=== PATIENT | male | born 1965 | race Caucasian/White ===

== ENCOUNTER 2023-08-03 19:55 | Emergency (ER) | payer MEDICAID, OTHER ==
[~2023-08-03] VITALS: Ht 177.8 cm; Wt 120.2 kg
[2023-08-03] MEDS ORDERED: BENA1TAB73 PO (20:20)
[2023-08-03] MEDS ORDERED: ATOR20TA PO (20:20)
[2023-08-03] MEDS ORDERED: METO-357 PO (20:20)
[2023-08-03] MEDS ORDERED: METF-495 PO (20:20)
[2023-08-03] MEDS ORDERED: ONDANSETRON 4 MG/2 ML VIAL ONE (20:33)
[2023-08-03] MEDS ORDERED: KETOROLAC TROMETHAMINE 15 MG INJ ONE (20:33)
[2023-08-03] MEDS: ONDANSETRON 4 MG/2 ML VIAL IV ONE (20:38)
[2023-08-03] MEDS: KETOROLAC TROMETHAMINE 15 MG INJ IVP ONE (20:38)
[2023-08-03] MEDS: IV NORMAL SALINE 500 ML BAG IV ONE (20:38)
[2023-08-03] MEDS ORDERED: IV NORMAL SALINE 250 ML IV ONE (20:40)
[2023-08-03] MEDS ORDERED: SWABABLE VALVE TRANSFER SET EA MC ONE (20:41)
[2023-08-03] MEDS ORDERED: IOHEXOL 300MG/ML 100 ML INFUS..BTL ONE (20:41)
[2023-08-03 20:44] LABS: BASOPHILS # (AUTO) 0.2 K/UL (0.0-0.2); BASOPHILS % (AUTO) 1.9 % (0.0-2.0); DIFFERENTIAL COMMENT 0; EOSINOPHILS # (AUTO) 0.2 K/uL (0.0-0.7); EOSINOPHILS % (AUTO) 2.3 % (0.0-7.0); HEMATOCRIT 40.4 % (36.7-47.1); HEMOGLOBIN 13.1 g/dL (12.5-16.3); LYMPHOCYTES % (AUTO) 20.2 % (20.5-51.5); MEAN CORPUSCULAR HGB CONC 32 g/dL (32.5-36.3); MEAN CORPUSCULAR VOLUME 61.9 fL (73.0-96.2); MONOCYTES # (AUTO) 0.7 K/uL (0.1-1.30); MONOCYTES % (AUTO) 6.8 % (0.0-11.0); NEUTROPHILS # (AUTO) 6.8 K/uL (1.8-8.9); NEUTROPHILS % (AUTO) 68.8 % (38.5-71.5); PLATELET COUNT (AUTO) 214 K/uL (152-348); RED CELL DISTRIBUTION WIDTH 17.4 % (12.1-16.2); WHITE BLOOD COUNT (AUTO) 9.9 K/uL (3.6-10.2)
[2023-08-03 20:51] LABS: RED BLOOD CELL COUNT(AUTO) 6.53 MIL/uL (4.06-5.63)
[2023-08-03 20:59] LABS: CALCIUM 8.7 mg/dL (8.5-10.1); CREATININE 0.9 mg/dL (0.6-1.3); POTASSIUM 3.5 mmol/L (3.5-5.1)
[2023-08-03 21:02] LABS: *BILIRUBIN,URIN NEGATIVE (NEGATIVE); *CLARITY,URINE CLEAR (CLEAR); *COLOR,URINE YELLOW (YELLOW); *KETONES,URINE NEGATIVE (NEGATIVE); *UROBILINOGEN,URINE 0.2 E.U./dl (NORMAL); LEUKOCYTE ESTERASE ,URINE NEGATIVE (NEGATIVE); NITRITE, URINE NEGATIVE (NEGATIVE); UGLUCOSE NEGATIVE (NEGATIVE)
[2023-08-03 21:05] LABS: *BLOOD, URINE TRACE (NEGATIVE)
[2023-08-03 21:05] LABS: ALBUMIN 3.2 g/dL (3.4-5.0); BILIRUBIN,TOTAL 0.5 mg/dL (0.2-1.0); MAGNESIUM 1.8 mg/dL (1.8-2.4); TOTAL PROTEIN, SERUM 8.2 g/dL (6.4-8.2)
[2023-08-03 21:06] LABS: *PROTEIN,URINE 2+ (NEGATIVE)
[2023-08-03 21:10] LABS: BACTERIA,URINE FEW /HPF (NONE SEEN); RBC,URINE 0-3 /HPF (0-3); SQUAMOUS EPITHELIAL CELL,UR FEW /HPF (NONE SEEN); WBC,URINE NONE SEEN /HPF (0-3)
[2023-08-03 21:14] LABS: ANISOCYTOSIS 1+; LYMPHOCYTES % (MANUAL) 21 % (20-40); MONOCYTES % (MANUAL) 6 % (2-10); NEUTROPHILS % (MANUAL) 73 % (42-75); PLATELET ESTIMATE ADEQUATE
[2023-08-03 21:15] LABS: HYPOCHROMASIA 1+
[2023-08-03 21:54] VITALS: BP 145/90; O2SAT 96
== END 2023-08-03 21:54 | disposition home or self-care (01) ==
LOC: ER 20:05
DX: R10.31 Right lower quadrant pain (principal); R14.0 Abdominal distension (gaseous); E78.5 Hyperlipidemia, unspecified; E11.9 Type 2 diabetes mellitus without complications; Z79.899 Other long term (current) drug therapy; Z88.0 Allergy status to penicillin
CPT/HCPCS: 99285; 74177; 96374; 96375; 80053; 81001; 83735; 85025; 36415; 83605; 85007; J1885; J2405; Q9967; J7040; 70030-TC; A4606; A4663